=== PATIENT | male | born 1975 | race Caucasian/White ===

== ENCOUNTER → 2017-05-13 | Outpatient (CLI) | payer OTHER ==
[2017-05-13 14:48] LABS: CHCM 32.6; HCT 45.9 % (39.0-53.0); HDW 2.76; HGB 14.7 gm/dL (13.0-17.5); MCH 29.6 pg (25.0-35.0); MCV 92.6 fL (80.0-100.0); Mean Platelet Volume 7.3; RBC 4.95 m/uL (4.30-5.90); RDW 14.2 % (11.5-15.5); WBC 12.6 k/uL (3.8-10.6)
[2017-05-13 15:04] LABS: ALT 49 U/L (21-72); AST 19 U/L (17-59); Alkaline Phosphatase 40 U/L (38-126); Amylase 90 U/L (30-110); Anion Gap 11 mmol/L; Blood Urea Nitrogen 10 mg/dL (9-20); Carbon Dioxide 21 mmol/L (22-30); Chloride 112 mmol/L (98-107); Iron 142 ug/dL (49-181); Non-African American GFR(MDRD) >60 (>60 ml/min/1.73 sqM); Potassium 3.9 mmol/L (3.5-5.1); Sodium 144 mmol/L (137-145); Total Bilirubin 1.8 mg/dL (0.2-1.3)
[2017-05-13 15:13] LABS: % Iron Saturation 45.8 % (20-50); Total Iron Binding Capacity 310 ug/dL (261-462)
== END | disposition home or self-care (01) ==
LOC: LABWHC1 14:20
PROVIDERS: ATTEND Internal Medicine Gastroenterology
DX: K50.00 Crohn's disease of small intestine without complications (principal)
CPT/HCPCS: 36415; 80051; 82150; 82247; 82565; 82728; 83540; 83550; 83690; 84075; 84450; 84460; 84520; 85027

== ENCOUNTER → 2017-08-15 | Outpatient (CLI) | payer OTHER ==
[2017-08-15 16:17] LABS: ALT 40 U/L (21-72); AST 23 U/L (17-59); Alkaline Phosphatase 39 U/L (38-126); Amylase 81 U/L (30-110); Anion Gap 8 mmol/L; Blood Urea Nitrogen 9 mg/dL (9-20); Carbon Dioxide 26 mmol/L (22-30); Chloride 109 mmol/L (98-107); Non-African American GFR(MDRD) >60 (>60 ml/min/1.73 sqM); Sodium 143 mmol/L (137-145); Total Bilirubin 1.3 mg/dL (0.2-1.3)
[2017-08-15 16:22] LABS: CH 30.6; CHCM 34.8; HCT 39.8 % (39.0-53.0); HDW 2.92; MCH 28.8 pg (25.0-35.0); MCHC 32.6 g/dL (31.0-37.0); MCV 88.4 fL (80.0-100.0); Mean Platelet Volume 7.5; RDW 13.9 % (11.5-15.5); WBC 9.4 k/uL (3.8-10.6)
[2017-08-16 01:14] LABS: Iron Saturation 28.43 (15.00-50.00)
== END | disposition home or self-care (01) ==
LOC: LABWHC1 15:23
PROVIDERS: ATTEND Internal Medicine Gastroenterology
DX: K50.00 Crohn's disease of small intestine without complications (principal)
CPT/HCPCS: 36415; 80051; 82150; 82247; 82565; 83540; 83550; 83690; 84075; 84450; 84460; 84520; 85027

== ENCOUNTER → 2017-10-10 | Outpatient (CLI) | payer OTHER ==
[2017-10-10 16:58] LABS: CH 29.8; CHCM 32.2; HDW 2.99; HGB 14.3 gm/dL (13.0-17.5); MCHC 33.2 g/dL (31.0-37.0); MCV 93.2 fL (80.0-100.0); Mean Platelet Volume 7.1; RBC 4.62 m/uL (4.30-5.90); RDW 14.2 % (11.5-15.5); WBC 9.6 k/uL (3.8-10.6)
[2017-10-10 17:05] LABS: Total Bilirubin 1.3 mg/dL (0.2-1.3)
[2017-10-11 01:24] LABS: Iron Saturation 35.63 (15.00-50.00)
== END | disposition home or self-care (01) ==
LOC: LABWHC1 16:09
PROVIDERS: ATTEND Internal Medicine Gastroenterology
DX: K50.00 Crohn's disease of small intestine without complications (principal)
CPT/HCPCS: 36415; 82150; 82247; 83540; 83550; 83690; 84075; 84450; 84460; 85027

== ENCOUNTER → 2018-01-21 | Outpatient (CLI) | payer OTHER ==
[2018-01-21 15:48] LABS: HCT 41.9 % (39.0-53.0); HGB 13.6 gm/dL (13.0-17.5); MCH 29.6 pg (25.0-35.0); MCHC 32.6 g/dL (31.0-37.0); MCV 90.9 fL (80.0-100.0); Mean Platelet Volume 6.9; Platelet Count 223 k/uL (150-450); RBC 4.61 m/uL (4.30-5.90); RDW 13.1 % (11.5-15.5); WBC 12.3 k/uL (3.8-10.6)
[2018-01-21 15:55] LABS: ALT 62 U/L (21-72); AST 20 U/L (17-59); Albumin 3.8 g/dL (3.5-5.0); Alkaline Phosphatase 37 U/L (38-126); Amylase 108 U/L (30-110); Anion Gap 11 mmol/L; Blood Urea Nitrogen 14 mg/dL (9-20); C Reactive Protein <5.0 mg/L (<10.0); Calcium 9.5 mg/dL (8.4-10.2); Carbon Dioxide 27 mmol/L (22-30); Chloride 102 mmol/L (98-107); Glucose 108 mg/dL (74-99); Lipase 130 U/L (23-300); Potassium 4.7 mmol/L (3.5-5.1); Sodium 140 mmol/L (137-145); Total Bilirubin 1.2 mg/dL (0.2-1.3); Total Protein 6.7 g/dL (6.3-8.2)
[2018-01-21 18:51] LABS: Iron Saturation 37.12 (15.00-50.00)
== END | disposition home or self-care (01) ==
LOC: LABWHC1 15:24
PROVIDERS: ATTEND Internal Medicine Gastroenterology
DX: K50.00 Crohn's disease of small intestine without complications (principal)
CPT/HCPCS: 36415; 80053; 82150; 82728; 83540; 83550; 83690; 85027; 86140

== ENCOUNTER → 2018-01-24 | Outpatient (CLI) | payer OTHER ==
--- NOTE | 2018-01-26 19:32 | CT ---
EXAMINATION TYPE: CT Enterography DATE OF EXAM: 01/24/2018 COMPARISON: 03/02/2016 HISTORY: Crohns disease. History of bowel resections. CT DLP: 3216 mGycm, Automated Exposure Control for Dose Reduction was Utilized. CONTRAST: CT scan of the abdomen and pelvis is performed with oral and without and with IV Contrast, patient in jected with 100 mL of Omnipaque 350. FINDINGS: LUNG BASES: Minimal bibasilar subsegmental dependent atelectasis is present. LIVER/GB: The gallbladder contains a lamellated gallstone within the gallbladder fundus. PANCREAS: No significant abnormality is seen. SPLEEN: No significant abnormality is seen. ADRENALS: No significant abnormality is seen. KIDNEYS: No nephrolithiasis on the unenhanced images. BOWEL: Right hemicolectomy has been performed with surgical closure for previous right ostomy. Suture s are seen surrounding the new terminal ileum and cecum. Focal long segment area of small bowel wall thickening within the right lower quadrant in a loop of d istal ileum is seen with surrounding engorgement of the vasa recta and 2 prominent lymph nodes no brandie ss evidence of fistula or sinus tract are seen. No surrounding focal fluid collection to suggest absc ess. Slight mucosal hyperemia of the incompletely distended sigmoid colon extending towards the right lower quadrant on series 6 image 114 demonstrates intramural fat indicative of acute on chronic infl ammation. PROSTATE/SEMINAL VESICLES: No gross abnormality seen. LYMPH NODES: Prominent lymph nodes around the celiac axis measure up to 9 mm in short axis on series 6 image 36. OSSEOUS STRUCTURES: No significant abnormality is seen. No significant sacroiliitis. OTHER: Ventral hernia is fat-containing and has a wide neck measuring 3.6 cm. There are portions both superior and inferior to the umbilicus. The inferior portion contains the antimesenteric border of a loop of small bowel which does not appear entrapped on CT. IMPRESSION: 1. Bowel wall thickening and mucosal hyperemia as well as vasa recta engorgement (comb sign) involvin g the distal ileum within a long segment in the right lower quadrant. This is indicative of acute inf lammation without surrounding abscess, fistula or sinus tract. Surrounding adjacent prominent mesente xenia lymph nodes are likely reactive. 2. Acute on chronic inflammatory change, mild in degree within the sigmoid colon also within a long s egment. 3. Ventral fat-containing hernia that is supraumbilical and infraumbilical with the infraumbilical he rnia containing the antimesenteric border of small bowel. Small bowel does not currently appear entra pped. 4. Redemonstration of cholelithiasis.
== END | disposition home or self-care (01) ==
LOC: RADCTMAIN 16:39
PROVIDERS: ATTEND Internal Medicine Gastroenterology
DX: K42.9 Umbilical hernia without obstruction or gangrene (principal); K80.20 Calculus of gallbladder without cholecystitis without obstruction; K63.89 Other specified diseases of intestine; K59.8 Other specified functional intestinal disorders; K31.89 Other diseases of stomach and duodenum
CPT/HCPCS: 74177; Q9967

== ENCOUNTER → 2018-05-19 | Outpatient (CLI) | payer OTHER ==
[2018-05-19 15:03] LABS: HGB 14.5 gm/dL (13.0-17.5); MCHC 33.7 g/dL (31.0-37.0); MCV 89.1 fL (80.0-100.0); Mean Platelet Volume 6.8; Platelet Count 234 k/uL (150-450); RBC 4.83 m/uL (4.30-5.90); RDW 14.7 % (11.5-15.5); WBC 15.2 k/uL (3.8-10.6)
[2018-05-19 15:18] LABS: ALT 84 U/L (21-72); AST 28 U/L (17-59); Albumin 3.8 g/dL (3.5-5.0); Alkaline Phosphatase 38 U/L (38-126); Amylase 85 U/L (30-110); Anion Gap 11 mmol/L; Blood Urea Nitrogen 9 mg/dL (9-20); C Reactive Protein <5.0 mg/L (<10.0); Calcium 9.2 mg/dL (8.4-10.2); Carbon Dioxide 22 mmol/L (22-30); Chloride 110 mmol/L (98-107); Glucose 93 mg/dL (74-99); Lipase 70 U/L (23-300); Potassium 3.2 mmol/L (3.5-5.1); Sodium 143 mmol/L (137-145); Total Bilirubin 1.1 mg/dL (0.2-1.3); Total Protein 6.6 g/dL (6.3-8.2)
== END | disposition home or self-care (01) ==
LOC: LABWHC1 14:09
PROVIDERS: ATTEND Internal Medicine Gastroenterology
DX: K50.00 Crohn's disease of small intestine without complications (principal)
CPT/HCPCS: 36415; 80053; 82150; 83690; 85027; 86140

== ENCOUNTER → 2018-12-15 | Outpatient (CLI) | payer OTHER ==
[2018-12-15 14:46] LABS: HCT 40.6 % (39.0-53.0); HGB 13.2 gm/dL (13.0-17.5); MCH 28.9 pg (25.0-35.0); MCHC 32.5 g/dL (31.0-37.0); MCV 88.9 fL (80.0-100.0); Mean Platelet Volume 6.3; Platelet Count 265 k/uL (150-450); RBC 4.57 m/uL (4.30-5.90); RDW 13.8 % (11.5-15.5); WBC 12.3 k/uL (3.8-10.6)
[2018-12-15 19:51] LABS: Iron Saturation 30.14 (15.00-50.00)
[2018-12-15 19:52] LABS: Albumin/Globulin Ratio 1.74 (1.20-2.10); Anion Gap 7.4 mmol/L (4.00-12.00); C Reactive Protein 0.5 mg/dL (0.0-0.8); Calcium 8.6 mg/dL (8.7-10.3); Carbon Dioxide 27.6 mmol/L (21.6-31.8); Globulin 2.3 g/dL (1.6-3.3); Potassium 3.7 mmol/L (3.5-5.5); Total Protein 6.3 g/dL (6.2-8.2)
== END ==
LOC: LABWHC1 13:53
PROVIDERS: ATTEND Internal Medicine Gastroenterology
DX: K50.00 Crohn's disease of small intestine without complications (principal)
CPT/HCPCS: 36415; 80053; 82728; 83540; 83550; 85027; 86140

== ENCOUNTER → 2018-12-25 | Outpatient (CLI) | payer OTHER ==
--- NOTE | 2018-12-29 07:51 | CT ---
EXAMINATION TYPE: CT Enterography DATE OF EXAM: 12/25/2018 COMPARISON: 01/24/2018 HISTORY: 43-year-old male with pain, f/u Crohn's TECHNIQUE: Contiguous axial scanning of the abdomen and pelvis performed without and with IV Contrast , patient injected with 100 mL of Isovue 370. Delayed images through the kidneys were obtained. Coron al/sagittal reconstructions performed. Negative oral contrast agent was utilized for enterography. CT DLP: 2415 mGycm Automated exposure control for dose reduction was used. FINDINGS: Heart normal size without pericardial effusion. Lung bases clear without pleural effusion. Liver enlarged measuring 21.0 cm. No focal lesion seen. Portal venous system is patent. No biliary du ctal dilatation. Gallbladder is collapsed with small calculi measuring up to 9 mm. Adrenal glands, right kidney, spleen, and pancreas appear within normal limits. There are stable subc entimeter hypodensity anterior upper pole cortex of the left kidney too small for accurate CT charact erization, likely cyst. Scattered retroperitoneal lymph nodes measure up to 6 mm versus 5 mm, previously in a nonspecific, pr obably reactive/post inflammatory. Mid mesenteric and right abdominal mesenteric lymphadenopathy is s table measuring up to 1.3 cm. Omental fat-containing ventral incisional hernias are demonstrated along the supraumbilical region me asuring up to 5.7 cm wide with hernia neck at 3.4 cm and a second incisional hernia measuring 6.0 cm wide. No dilated small bowel, free fluid, or free air. Post surgical changes of distal ileal resection with ileocolonic anastomosis. The last 17 cm of the distal ileum shows mild circumferential wall thickening with mucosal hyperemia and engorgement of the vasa recta. There is an additional 7 cm segment of mild circumferential wall thickening and mucosal hyperemia at the rectosigmoid junction. There is evidence of chronic inflammation involving the mid to distal rectum evidenced by submucosal fat deposition. In addition, there is circumferential wall thickening with mucosal hyperemia now demo nstrated involving 5 cm of the mid to distal rectum. Redundant sigmoid colon. Bladder is urine distended. Pelvic phleboliths. No abnormal fluid collection in the pelvis. Prominent bilateral external iliac chain lymph nodes measure up to 1 cm, increased from prior but are nonspeci fic, probably reactive. A 1.2 cm right inguinal lymph node has also increased in size having measured 7 mm, previously. This can be followed clinically. Bones: No osseous destructive process. IMPRESSION: 1. MILD ACTIVE CROHN'S ILEITIS INVOLVING THE LAST 17 CM OF THE DISTAL ILEUM. PRIOR DISTAL SMALL BOWEL RESECTION AND ILEOCOLONIC ANASTOMOSIS. 2. ADDITIONAL MILD ACTIVE COLITIS INVOLVING A 7 CM LENGTH OF COLON AT THE RECTOSIGMOID JUNCTION. 3. MILD ACUTE ON CHRONIC INFLAMMATION INVOLVING A 5 CM SEGMENT OF MID TO DISTAL RECTUM. 4. SOME SCATTERED LYMPH NODES IN THE ABDOMEN AND PELVIS SHOWS SLIGHT INCREASE IN SIZE. FOR EXAMPLE, A RIGHT INGUINAL LYMPH NODE MEASURES 1.2 CM VERSUS 7 MM, PREVIOUSLY. BILATERAL EXTERNAL ILIAC CHAIN LY MPH NODES MEASURE 1 CM AND WERE PREVIOUSLY VERY SMALL. FINDINGS PROBABLY REACTIVE/POST INFLAMMATORY. THE RIGHT INGUINAL LYMPH NODE CAN BE FOLLOWED CLINICALLY. 5. CHOLELITHIASIS, HEPATOMEGALY (21.0 CM) AND A COUPLE STABLE OMENTAL FAT-CONTAINING VENTRAL INCISION AL HERNIAS ALONG THE SUPRAUMBILICAL REGION MEASURING UP TO 6 CM.
== END | disposition home or self-care (01) ==
LOC: RADCTMAIN 15:51
PROVIDERS: ATTEND Internal Medicine Gastroenterology
DX: K50.00 Crohn's disease of small intestine without complications (principal); K52.9 Noninfective gastroenteritis and colitis, unspecified; K80.20 Calculus of gallbladder without cholecystitis without obstruction; R16.0 Hepatomegaly, not elsewhere classified; K43.2 Incisional hernia without obstruction or gangrene; Z90.49 Acquired absence of other specified parts of digestive tract
CPT/HCPCS: 74177; Q9967

== ENCOUNTER → 2022-09-24 | Outpatient (CLI) | payer OTHER ==
[2022-09-24 18:18] LABS: Hepatitis A Antibody IgM Nonreactive (Nonreactive); Hepatitis B Core IgM Nonreactive (Nonreactive); Hepatitis B Surface Antigen Nonreactive (Nonreactive); Hepatitis C IgG Antibody Nonreactive (Nonreactive)
[2022-09-24 18:22] LABS: African American GFR (CKD) 90.9 (60.0-200.0); Albumin/Globulin Ratio 1.43 (1.60-3.17); Anion Gap 12.1 mmol/L (10.00-18.00); BUN/Creat Ratio 6.64 Ratio (12.00-20.00); Blood Urea Nitrogen 7.3 mg/dL (9.0-27.0); C Reactive Protein 4.3 mg/dL (0.00-0.80); Calcium 9.1 mg/dL (8.7-10.3); Carbon Dioxide 21.9 mmol/L (20.0-27.5); Globulin 2.8 g/dL (1.6-3.3); Non-African American GFR(CKD) 78.4 (60.0-200.0); Total Bilirubin 1.7 mg/dL (0.30-1.20); Total Protein 6.8 g/dL (6.2-8.2)
[2022-09-24 19:14] LABS: HCT 42.7 % (39.6-50.0); HGB 14.7 g/dL (13.0-17.0); MCH 29.8 pg (27.0-32.0); MCHC 34.4 g/dL (32.0-37.0); MCV 86.4 fL (80.0-97.0); NRBC Per 100 WBC 0 /100 WBCS (0.0-0.0); Platelet Count 320 X 10*3/uL (140-440); RBC 4.94 X 10*6/uL (4.40-5.60); RDW 13.4 % (11.5-14.5); WBC 12.71 X 10*3/uL (4.50-10.00)
== END ==
LOC: LABWHC1 12:59
PROVIDERS: ATTEND Internal Medicine Gastroenterology
DX: K50.90 Crohn's disease, unspecified, without complications (principal); F17.210 Nicotine dependence, cigarettes, uncomplicated
CPT/HCPCS: 36415; 80053; 80074; 85027; 86140; 86480; 87340

== ENCOUNTER 2023-09-18 11:43 | Day surgery (SDC) | payer OTHER ==
[2023-09-16 11:41] VITALS: BMI 30.3
[~2023-09-18 11:43] MED LIST: LACTATED RINGERS 1,000 ML IV SCH
[2023-09-18 13:06] VITALS: TEMP 98.1
[2023-09-18] MEDS ORDERED: PROPOFOL 10 MG/ML 20 ML VIAL IV ONE (13:28)
--- NOTE | 2023-09-18 13:43 | P.PCN ---
Date of Procedure: 09/18/23 Procedure(s) Performed: BRIEF HISTORY: Patient is a 48-year-old pleasant white male scheduled for an elective colonoscopy as a part of evaluation of long-standing history of Crohn's ileitis diagnosed in 1999. He is status post terminal ileal resection in 1999. He is presently maintained on Humira injections every 2 weeks and remains in clinical remission. PROCEDURE PERFORMED: Colonoscopy biopsy and snare polypectomy. PREOPERATIVE DIAGNOSIS: History of Crohn's ileitis status post terminal ileal resection in 1999. IV sedation per Anesthesia. PROCEDURE: After informed consent was obtained, the patient, was brought into the endoscopy unit. IV sedation was administered by Anesthesia under continuous monitoring. Digital rectal examination was normal. Initially the Olympus CF-160 flexible video colonoscope was then inserted in the rectum, gradually advanced into the right colon with ileocolic anastomosis was visualized which appeared patent. There are scattered erosions noted at the ileocolic anastomosis and in the distal ileum up to 5 proximal to mucosa of the the anastomosis and biopsies were done from this area., transverse colon, descending colon, sigmoid colon, and rectum appeared normal. Proximal rectum there was a 7 mm polyp removed by snare polypectomy. Retroflexion was performed in the rectum and no lesions were seen. The patient tolerated the procedure well. IMPRESSION: Erosions and superficial ulcerations of the liquid anastomosis and in the distal ileum but patent anastomosis 7 mm proximal rectal polyp status post polypectomy Rest of the colon appeared RECOMMENDATIONS: Findings of this examination were discussed with the patient as well as his family. He was advised to follow with the biopsy results.. Continue with Humira injections every 2 weeks. Follow up in office in 2 months.
[2023-09-18 14:06] VITALS: RESP 16
[2023-09-18 14:25] VITALS: BP 105/68; PULSE 64
== END 2023-09-18 14:34 | disposition home or self-care (01) ==
LOC: ORWHC2ENDO 11:43
PROVIDERS: ATTEND Internal Medicine Gastroenterology
DX: K62.1 Rectal polyp (principal); K50.80 Crohn's disease of both small and large intestine without complications; F17.210 Nicotine dependence, cigarettes, uncomplicated; Z98.0 Intestinal bypass and anastomosis status; Z79.899 Other long term (current) drug therapy
CPT/HCPCS: 88305; 45380; 45385; J2704

== ENCOUNTER → 2024-06-18 | Outpatient (CLI) | payer OTHER ==
--- NOTE | 2024-06-18 18:50 | US ---
EXAMINATION TYPE: US venous doppler duplex LE DATE OF EXAM: 06/18/2024 2:03 PM COMPARISON: NONE CLINICAL INDICATION: Male, 49 years old with history of lower extremity edema; Left leg swelling SIDE PERFORMED: Bilateral TECHNIQUE: The lower extremity deep venous system is examined utilizing real time linear array sonog loc with graded compression, doppler sonography and color-flow sonography. VESSELS IMAGED: Common Femoral Vein Deep Femoral Vein Greater Saphenous Vein * Femoral Vein Popliteal Vein Small Saphenous Vein * Proximal Calf Veins (* superficial vessels) Right Leg: Appears negative for DVT Left Leg: Appears negative for DVT IMPRESSION: 1. Bilateral lower extremity ultrasound negative for deep venous thrombosis.
--- NOTE | 2024-06-19 00:02 | US ---
EXAMINATION TYPE: US arterial LE single level DATE OF EXAM: 06/18/2024 2:19 PM CLINICAL INDICATION: Male, 49 years old with history of lower extremity edema; Left leg swelling History of: Smoker: current Hypertension: no Diabetic: no Hyperlipidemia: yes TIA/CVA: no Previous Vascular Surgery: no [place]: no Vascular Ulcers: no Claudication: no Gangrene: no Doppler Waveforms: Right: Multiphasic Left: Multiphasic Right Brachial Pressure: 116 Left Brachial Pressure: 116 Ankle-Brachial Indices: Right: 1.19 Left: 1.21 (Vessel hardening > 1.4; Normal 0.9 - 1.4, Moderate 0.7 - 0.9, Severe 0.5-0.7) IMPRESSION: No velocity abnormality to suggest arterial stenosis lower extremities
== END | disposition home or self-care (01) ==
LOC: RADUSWWP 13:33
PROVIDERS: ATTEND Family Medicine
DX: M79.89 Other specified soft tissue disorders (principal); R60.0 Localized edema; Z87.891 Personal history of nicotine dependence; E78.5 Hyperlipidemia, unspecified
CPT/HCPCS: 93922; 93970

== ENCOUNTER → 2024-11-02 | Outpatient (CLI) | payer OTHER ==
[2024-11-02 20:37] LABS: Basophils # (A) 0.04 X 10*3/uL (0.00-0.10); Basophils % (A) 0.3 %; Eosinophils # (A) 0.01 X 10*3/uL (0.04-0.35); Eosinophils % (A) 0.1 %; HCT 44.3 % (39.6-50.0); HGB 14.7 g/dL (13.0-17.0); Lymphocytes % (A) 17.9 %; MCH 30.8 pg (27.0-32.0); MCHC 33.2 g/dL (32.0-37.0); MCV 92.7 FL (80.0-97.0); Mean Platelet Volume 10.2 FL (9.5-12.2); Monocytes # (A) 0.82 X 10*3/uL (0.20-1.00); Monocytes % (A) 5.2 %; NRBC Per 100 WBC 0 X 10*3/uL (0.00-0.01); Neutrophils # (A) 11.87 X 10*3/uL (1.80-7.70); Neutrophils % (A) 75.8 %; Platelet Count 250 X 10*3/uL (140-440); RBC 4.78 X 10*6/uL (4.40-5.60); RDW 13.6 % (11.5-14.5); WBC 15.65 X 10*3/uL (4.50-10.00)
[2024-11-02 21:15] LABS: ALT 29 U/L (10-49); AST 17 U/L (14-35); Albumin 4.3 g/dL (3.8-4.9); Albumin/Globulin Ratio 1.59 Ratio (1.60-3.17); Alkaline Phosphatase 32 U/L (41-126); BUN/Creat Ratio 9.67 Ratio (12.00-20.00); Blood Urea Nitrogen 8.7 mg/dL (9.0-27.0); Calcium 9.5 mg/dL (8.7-10.3); Carbon Dioxide 25.2 mmol/L (21.6-31.8); Chloride 104 mmol/L (96-109); Globulin 2.7 g/dL (1.6-3.3); Glucose 95 mg/dL (70-110); Potassium 4.1 mmol/L (3.5-5.5); Sodium 141 mmol/L (135-145); Total Bilirubin 1.1 mg/dL (0.3-1.2)
== END | disposition home or self-care (01) ==
LOC: LABWHC1 13:36
PROVIDERS: ATTEND Internal Medicine Gastroenterology
DX: K50.90 Crohn's disease, unspecified, without complications (principal)
CPT/HCPCS: 36415; 80053; 85025